=== PATIENT | female | born 1945 | race Caucasian/White ===

== ENCOUNTER 2018-11-03 10:05 | Emergency (ER) | payer MEDICARE ==
[~2018-11-03] VITALS: Ht 157.5 cm; Wt 63.8 kg
[2018-11-03 11:33] LABS: HEMATOCRIT 46.7 % (37.0-47.0); HEMOGLOBIN 14.7 g/dl (12.0-16.0); IMMATURE GRANULOCYTES 0.3 % (0.0-5.0); MEAN CELL VOLUME 96.9 fL CALC (80.0-100.0); MEAN CORPUSCULAR HGB 30.5 pG CALC (26.0-32.0); MEAN CORPUSCULAR HGB CONC 31.5 g/L CALC (32.0-36.0); NEUT# 4.34 thou/uL (2.00-7.15); RED BLOOD COUNT 4.82 mill/uL (4.20-5.60); RED CELL DISTRI WIDTH 13.8 % (11.5-15.5)
[2018-11-03 11:44] LABS: ALBUMIN 3.9 g/dL (3.2-5.0); ALKALINE PHOSPHATASE 27 u/l (38-126); ANION GAP 12 (6-22 (CALC)); BILIRUBIN, TOTAL 0.9 mg/dL (0.0-1.4); BUN 17 mg/dL (8-23); BUN/CREATININE RATIO 18 (12-20 (CALC)); CARBON DIOXIDE 24 mmol/l (22-30); CHLORIDE 107 mmol/l (95-108); CREATININE 0.9 mg/dL (0.5-1.0); GFR > 60 ML/MIN (>=60 (CALC)); GFR FOR AFR.AMER. > 60 ML/MIN (>=60 (CALC)); POTASSIUM 4.1 mmol/l (3.5-5.1); SGOT/AST 23 u/l (9-36); SODIUM 139 mmol/l (137-146); TOTAL PROTEIN 6.4 g/dL (6.3-8.2)
[2018-11-03 12:37] LABS: URINE BILIRUBIN - DIPSTICK NEGATIVE (NEGATIVE); URINE BLOOD DIPSTICK TRACE-LYSED (NEGATIVE); URINE COLOR YELLOW; URINE GLUCOSE - DIPSTICK NEGATIVE (NEGATIVE); URINE KETONE NEGATIVE (NEGATIVE); URINE NITRITE - DIPSTICK NEGATIVE (Negative); URINE PH 7.5 (4.5-8.0); URINE PROTEIN - DIPSTICK NEGATIVE (NEG-TRACE); URINE SPECIFIC GRAVITY 1.015; URINE UROBILINOGEN - DIPSTICK 0.2 E.U./dL (0.2)
[2018-11-03 12:38] LABS: URINE LEUK ESTERASE MODERATE (NEGATIVE)
[2018-11-03 12:44] LABS: URINE BACTERIA MODERATE hpf; URINE SQUAMOUS EPITHELIAL CELL FEW EPI/hpf (0-FEW)
[2018-11-03] MEDS ORDERED: ANTIVERT PO (13:12)
[2018-11-03] MEDS ORDERED: LISINOPRIL20 MG PO (13:12)
[2018-11-03 13:34] VITALS: BP 165/76
[2018-11-03] MEDS ORDERED: KEFLEX500 M1 PO (13:45)
== END 2018-11-03 13:50 | disposition home or self-care (01) ==
LOC: ED 10:05
PROVIDERS: Emergency Medicine
DX: I10 Essential (primary) hypertension (principal); R42 Dizziness and giddiness; N39.0 Urinary tract infection, site not specified; R53.1 Weakness; R50.9 Fever, unspecified

== ENCOUNTER 2019-03-14 14:32 | Emergency (ER) | payer MEDICARE ==
[~2019-03-14] VITALS: Ht 157.5 cm; Wt 60.0 kg
[~2019-03-14 14:32] MED LIST: ANTIVERT PO; KEFLEX500 M1 PO; LISINOPRIL20 MG PO
[2019-03-14] MEDS ORDERED: DELTASONE20 MG PO (17:43)
[2019-03-14 17:45] VITALS: BP 143/74
== END 2019-03-14 17:53 | disposition home or self-care (01) ==
LOC: ED 14:32
DX: T63.461A Toxic effect of venom of wasps, accidental (unintentional), initial encounter (principal); L23.89 Allergic contact dermatitis due to other agents

== ENCOUNTER 2019-05-12 15:49 | Emergency (ER) | payer MEDICARE ==
[~2019-05-12] VITALS: Ht 157.5 cm; Wt 72.0 kg
[~2019-05-12 15:49] MED LIST changes: +DELTASONE20 MG PO
[2019-05-12 18:00] VITALS: BP 158/88
== END 2019-05-12 18:05 | disposition home or self-care (01) ==
LOC: ED 15:49
DX: S00.81XA Abrasion of other part of head, initial encounter (principal); W01.0XXA Fall on same level from slipping, tripping and stumbling without subsequent striking against object, initial encounter; Y93.89 Activity, other specified; Y92.007 Garden or yard of unspecified non-institutional (private) residence as the place of occurrence of the external cause